=== PATIENT | female | born 1995 | race African-American/Black ===

== ENCOUNTER 2018-06-29 15:59 | Emergency (ER) | payer SELFPAY ==
[2018-06-29] MEDS ORDERED: DICYCLOMINE HCL 10 MG CAPSULE PO ONE (16:51)
[2018-06-29] MEDS ORDERED: IBUPROFEN 600 MG TABLET PO ONE (16:51)
--- NOTE | 2018-06-29 16:53 | ER Document Report ---
ED GI/ - General Chief Complaint: Pain With Urination Stated Complaint: STOMACH PAIN Time Seen by Provider: 06/29/18 16:50 Notes: Chief complaint: abdominal pain: History of complain:( obtained from----patient) 22 years old female presents today with suprapubic pain and discomfort dysuria and frequency for the last few days. Denies any fever chills denies any nausea vomiting diarrhea. But been constipated, usually has 2-3 bowel movement in a week. Smokes cannabis and cigarettes Onset: As above gradual Duration: Gradual last 2-3 days Severity: Mild to moderate Quality: Crampy Context: None Exacerbating factor and relieving factors: None REVIEW OF SYSTEMS: CONSTITUTIONAL : Denies fever, chills, or sweats. Denies recent illness. EENT: Denies eye, ear, throat, or mouth pain or symptoms. Denies nasal or sinus congestion or discharge. Denies throat, tongue, or mouth swelling or difficulty swallowing. CARDIOVASCULAR: Denies chest pain. Denies palpitations or racing or irregular heart beat. Denies ankle edema. RESPIRATORY: Denies cough, cold, or chest congestion. Denies shortness of breath, difficulty breathing, or wheezing. GASTROINTESTINAL: Denies distention. Denies nausea, vomiting, or diarrhea. Denies blood in vomitus, stools, or per rectum. Denies black, tarry stools. Denies constipation. GENITOURINARY: Denies difficulty urinating, painful urination, burning, frequency, blood in urine, or discharge. FEMALE GENITOURINARY: Denies vaginal bleeding, heavy or abnormal periods, irregular periods. Denies vaginal discharge or odor. MUSCULOSKELETAL: Denies back or neck pain or stiffness. Denies joint pain or swelling. SKIN: Denies rash, lesions or sores. HEMATOLOGIC : Denies easy bruising or bleeding. LYMPHATIC: Denies swollen, enlarged glands. NEUROLOGICAL: Denies confusion or altered mental status. Denies passing out or loss of consciousness. Denies dizziness or lightheadedness. Denies headache. Denies weakness or paralysis or loss of use of either side. Denies problems with gait or speech. Denies sensory loss, numbness, or tingling. Denies seizures. PSYCHIATRIC: Denies anxiety or stress. Denies depression, suicidal ideation, or homicidal ideation. ALL OTHER SYSTEMS REVIEWED AND NEGATIVE. PHYSICAL EXAMINATION: GENERAL: Well-appearing, well-nourished and in no acute distress. HEAD: Atraumatic, normocephalic. EYES: Pupils equal round and reactive to light, extraocular movements intact, conjunctiva are normal. ENT: Nares patent, oropharynx clear without exudates. Moist mucous membranes. NECK: Normal range of motion, supple without lymphadenopathy LUNGS: Breath sounds clear to auscultation bilaterally and equal. No wheezes rales or rhonchi. HEART: Regular rate and rhythm without murmurs ABDOMEN: Soft, nontender, nondistended abdomen. No guarding, no rebound. No masses appreciated. Female : deferred Musculoskeletal: Normal range of motion, no pitting or edema. No cyanosis. NEUROLOGICAL: Cranial nerves grossly intact. Normal speech, normal gait. Normal sensory, motor exams PSYCH: Normal mood, normal affect. SKIN: Warm, Dry, normal turgor, no rashes or lesions noted. Dictation was performed using [employer] voice recognition software TRAVEL OUTSIDE OF THE [place] IN LAST 30 DAYS: No - HPI Notes: 06/29/18 16:53 Dictated - Related Data Allergies/Adverse Reactions: Penicillins Allergy (Verified 06/29/18 16:02) Past Medical History - Social History Smoking Status: Current Every Day Smoker Cigarette use (# per day): No Chew tobacco use (# tins/day): No Smoking Education Provided: No Frequency of alcohol use: Rare Drug Abuse: Marijuana Family History: Reviewed & Not Pertinent Review of Systems - Review of Systems Notes: Dictated Physical Exam - Vital signs Vitals: Temp Pulse Resp BP Pulse Ox 98.8 F 65 16 105/51 L 100 06/29/18 16:05 06/29/18 16:05 06/29/18 16:05 06/29/18 16:05 06/29/18 16:05 - Notes Notes: Dictated Course - Vital Signs Vital signs: Temp Pulse Resp BP Pulse Ox 98.8 F 65 16 105/51 L 100 06/29/18 16:05 06/29/18 16:05 06/29/18 16:05 06/29/18 16:05 06/29/18 16:05
[2018-06-29 17:36] LABS: APPEARANCE,URINE CLOUDY; BILIRUBIN,URINE NEGATIVE (NEGATIVE); COLOR,URINE YELLOW; GLUCOSE, URINE NEGATIVE (NEGATIVE); KETONES,URINE NEGATIVE (NEGATIVE); LEUKOCYTE ESTERASE,URINE LARGE (NEGATIVE); NITRITE,URINE POSITIVE (NEGATIVE); PROTEIN,URINE 100 mg/dL (NEGATIVE); URINE SPECIFIC GRAVITY 1.029
[2018-06-29] MEDS ORDERED: CEFTRIAXONE INJ 1000 MG VIAL IV ONE (18:54)
[2018-06-29] MEDS ORDERED: NORMAL SALINE 1000 ML 1,000 ML IV ONE (18:54)
--- NOTE | 2018-06-29 18:56 | RADIOLOGY REPORT (SQ) ---
EXAM DESCRIPTION: KUB/ABDOMEN (SINGLE VIEW) COMPLETED DATE/TIME: 06/29/2018 6:13 pm REASON FOR STUDY: Abdominal pain COMPARISON: None. NUMBER OF VIEWS: One view. TECHNIQUE: Supine radiographic image of the abdomen acquired. LIMITATIONS: None. FINDINGS: BOWEL GAS PATTERN: Normal bowel gas pattern. No dilated loops. CALCIFICATIONS: No suspicious calcifications. SOFT TISSUES: No gross mass or suggestion of organomegaly. HARDWARE: None in the abdomen. BONES: No acute fracture. No worrisome bone lesions. OTHER: No other significant finding. IMPRESSION: NO RADIOGRAPHIC EVIDENCE FOR ACUTE ABDOMINAL DISEASE. TECHNICAL DOCUMENTATION: JOB ID: [id number] [employer]- All Rights Reserved Reading location - IP/workstation name: [email or web address]
--- NOTE | 2018-06-29 19:43 | ER Document Report ---
ED General - General Chief Complaint: Pain With Urination Stated Complaint: STOMACH PAIN Time Seen by Provider: 06/29/18 16:50 Notes: Patient is a 22-year-old female without chronic medical problems who presents with 1 week of dysuria now over the last 48 hours has developed suprapubic abdominal discomfort as well as bilateral flank tenderness. The patient describes the pain to her suprapubic abdomen and flanks as a mild, throbbing, aching pain. Nothing improves or worsens this pain. She denies a history of similar symptoms in the past. She has not had any fever or constitutional symptoms. No vomiting. She has not seen her general doctor regarding today's concerns. She states that she was concerned that she was becoming more ill prompting her to present to the emergency department today. TRAVEL OUTSIDE OF THE [place] IN LAST 30 DAYS: No - Related Data Allergies/Adverse Reactions: Penicillins Allergy (Verified 06/29/18 16:02) Past Medical History - General Information source: Patient Last Menstrual Period: 02 of June - Social History Smoking Status: Current Every Day Smoker Cigarette use (# per day): No Chew tobacco use (# tins/day): No Frequency of alcohol use: Rare Drug Abuse: Marijuana Lives with: Family Family History: Reviewed & Not Pertinent Patient has suicidal ideation: No Patient has homicidal ideation: No Renal/ Medical History: Denies: Hx Peritoneal Dialysis Review of Systems - Review of Systems Notes: Constitutional: Negative for fever. HENT: Negative for sore throat. Eyes: Negative for visual changes. Cardiovascular: Negative for chest pain. Respiratory: Negative for shortness of breath. Gastrointestinal: Positive for abdominal and flank pain Genitourinary: Positive for dysuria. Musculoskeletal: Negative for back pain. Skin: Negative for rash. Neurological: Negative for headaches, weakness or numbness. 10 point ROS negative except as marked above and in HPI. Physical Exam - Vital signs Vitals: Temp Pulse Resp BP Pulse Ox 98.8 F 65 16 105/51 L 100 06/29/18 16:04 06/29/18 16:04 06/29/18 16:04 06/29/18 16:04 06/29/18 16:04 Interpretation: Normal Notes: PHYSICAL EXAMINATION: GENERAL: Well-appearing, well-nourished and in no acute distress. HEAD: Atraumatic, normocephalic. EYES: Pupils equal round and reactive to light, extraocular movements intact, sclera anicteric, conjunctiva are normal. ENT: nares patent, oropharynx clear without exudates. Mildly dry mucous membranes. NECK: Normal range of motion, supple without lymphadenopathy LUNGS: Breath sounds clear to auscultation bilaterally and equal. No wheezes rales or rhonchi. HEART: Regular rate and rhythm without murmurs ABDOMEN: Soft, bilateral CVA tenderness and suprapubic abdominal tenderness without rebound or guarding. Abdominal exam otherwise benign without any localized areas of tenderness. Normoactive bowel sounds. EXTREMITIES: Normal range of motion, no pitting or edema. No cyanosis. NEUROLOGICAL: No focal neurological deficits. Moves all extremities spontaneously and on command. PSYCH: Normal mood, normal affect. SKIN: Warm, Dry, normal turgor, no rashes or lesions noted. Course - Re-evaluation Re-evalutation: 06/29/18 19:42 Presentation is most consistent with acute pyelonephritis. Laboratories do demonstrate a large amount of white blood cells in the urine as well as bacteria. CVA tenderness is present on exam. The remainder laboratories are relatively unremarkable without evidence of renal dysfunction. I do not suspect an acute appendicitis, biliary pathology, pancreatitis, intra-abdominal abscess, or tubo-ovarian abscess based on history and examination. Patient has been given a dose of IV ceftriaxone and a liter of fluids. Patient is able to tolerate oral intake without difficulty. Will be discharged home on 7 day course of cephalexin. A urine culture has been sent. At this time will discharge with return precautions and follow-up recommendations. Verbal discharge instructions given a the bedside and opportunity for questions given. Medication warnings reviewed. Patient is in agreement with this plan and has verbalized understanding of return precautions and the need for primary care follow-up in the next 24-72 hours. 06/30/18 03:51 - Vital Signs Vital signs: Temp Pulse Resp BP Pulse Ox 97.7 F 51 L 16 116/61 100 06/29/18 22:44 06/29/18 22:44 06/29/18 16:05 06/29/18 22:44 06/29/18 22:44 - Laboratory Result Diagrams: 06/29/18 21:00 06/29/18 21:00 Laboratory results interpreted by me: 06/29/18 06/29/18 06/29/18 17:08 21:00 21:00 RDW 16.1 H Seg Neutrophils % 33.6 L Lymphocytes % 52.2 H AST 38 H Urine Protein 100 H Urine Blood MODERATE H Urine Nitrite POSITIVE H Urine Urobilinogen 2.0 H Ur Leukocyte Esterase LARGE H - Diagnostic Test Radiology reviewed: Image reviewed, Reports reviewed Radiology results interpreted by me: 06/29/18 19:42 KUB: No evidence of obstruction or perforation Discharge - Discharge Clinical Impression: Pyelonephritis, Dysuria Condition: Good Disposition: HOME, SELF-CARE Additional Instructions: You have been diagnosed with a condition called pyelonephritis which is an infection involving your kidneys and bladder. You have been given a dose of antibiotics here in the emergency department to help begin to treat this infection. Your also being sent home on antibiotics. Please start taking these later on today when you fill the prescription. Complete the course even if you feel better. Please return if you have persistent vomiting, pass out, have worsening pain, become unable to tolerate fluids, or have any other symptoms that are concerning to you. Please follow-up with your primary care physician in the next 24-48 hours. Prescriptions: Cephalexin Monohydrate [Keflex 500 mg Capsule] 500 mg PO Q6H 7 Days capsule
[2018-06-29 21:15] LABS: ABSOLUTE BASOPHILS # (AUTO) 0.1 10^3/uL (0.0-0.2); ABSOLUTE EOSINOPHILS # (AUTO) 0.2 10^3/uL (0.0-0.6); ABSOLUTE LYMPHOCYTES (AUTO) 3.2 10^3/uL (0.5-4.7); ABSOLUTE MONOCYTES (AUTO) 0.6 10^3/uL (0.1-1.4); ABSOLUTE NEUT (AUTO) 2.1 10^3/uL (1.7-8.2); BASOPHILS % (AUTO) 1.3 % (0-2); EOSINOPHILS % (AUTO) 3.1 % (0-6); HEMATOCRIT 40.2 % (36.0-47.0); HEMOGLOBIN 13.4 g/dL (12.0-15.5); LYMPHOCYTES % (AUTO) 52.2 % (13-45); MEAN CORPUSCULAR HEMOGLOBIN 29.2 pg (27.0-33.4); MEAN CORPUSCULAR HGB CONC 33.2 g/dL (32.0-36.0); MEAN CORPUSCULAR VOLUME 88 fl (80-97); MONOCYTES % (AUTO) 9.8 % (3-13); PLATELET COUNT 365 10^3/uL (150-450); RED BLOOD COUNT 4.58 10^6/uL (3.72-5.28); RED CELL DISTRIBUTION WIDTH 16.1 % (11.5-14.0); SEGMENTED NEUTROPHILS % (AUTO) 33.6 % (42-78); TOTAL CELLS COUNTED % (AUTO) 100 %; WHITE BLOOD COUNT 6.2 10^3/uL (4.0-10.5)
[2018-06-29 21:32] LABS: ALANINE AMINOTRANSFERASE 36 U/L (9-52); ALBUMIN 4.5 g/dL (3.5-5.0); ALKALINE PHOSPHATASE 52 U/L (38-126); ANION GAP 12 (5-19); ASPARTATE AMINO TRANSFERASE 38 U/L (14-36); BILIRUBIN,DIRECT 0.3 mg/dL (0.0-0.4); BILIRUBIN,TOTAL 0.5 mg/dL (0.2-1.3); BLOOD UREA NITROGEN 15 mg/dL (7-20); CALCIUM 10.1 mg/dL (8.4-10.2); CARBON DIOXIDE 23 mmol/L (22-30); CHLORIDE 104 mmol/L (98-107); GLUCOSE 86 mg/dL (75-110); POTASSIUM 4.8 mmol/L (3.6-5.0); SODIUM 138.8 mmol/L (137-145); TOTAL PROTEIN 7.8 g/dL (6.3-8.2)
[2018-06-29 22:47] VITALS: BP 116/61
== END 2018-06-29 22:47 | disposition home or self-care (01) ==
LOC: ER 15:59
DX: N12 Tubulo-interstitial nephritis, not specified as acute or chronic (principal); R30.0 Dysuria; F17.200 Nicotine dependence, unspecified, uncomplicated; Z88.0 Allergy status to penicillin
CPT/HCPCS: 99284; 96361; 96365; 96366; 36415; 87086; 85025; 81025; 87088; 80053; 81001; 87186; 74018; J3490; J0696; J7030

== ENCOUNTER → 2020-11-04 | Outpatient (CLI) | payer SELFPAY ==
--- NOTE | 2020-11-04 15:01 | RADIOLOGY REPORT (SQ) ---
EXAM DESCRIPTION: U/S OB 14+ TRNABD 1GES W/O DOP IMAGES COMPLETED DATE/TIME: 11/04/2020 2:50 pm REASON FOR STUDY: (Z34.81)ENCOUNTER FOR SUPRVSN OF NORMAL , FIRST TRIMESTER Z34.81 ENCOUNT ER FOR SUPRVSN OF NORMAL , FIRST TRIM COMPARISON: None. TECHNIQUE: Static and Dynamic grayscale imaging performed of gravid uterus using transabdominal appr oach. Additional selected color Doppler and spectral images recorded. All stored on PACS. LIMITATIONS: None. FINDINGS: FETUSES SEEN:1 EGA: 14 weeks 5 days Calculated using BPD,FL,HC,AC documented on images. 5 weeks greater than gestat ional age by clinical dating. JULIÁN: 04/30/2021 LVP: 4.7 x 6.6 cm. PLACENTA: Anterior GRADE: I PRESENTATION: Variable ANATOMY: HEART RATE: 152 beats per minute. It is too early to assess anatomy meaningfully. MATERNAL ADNEXA: 18 mm left ovarian cyst. CERVICAL LENGTH: 3.3 cm. Closed. OTHER: No other significant finding. IMPRESSION: LIVING INTRAUTERINE . ESTIMATED GESTATIONAL AGE 14 weeks 5 days. Very limited anatomical evaluation. Trimester of : Third trimester - 28 weeks to delivery. TECHNICAL DOCUMENTATION: JOB ID: [id number] [employer]- All Rights Reserved Reading location - IP/workstation name: [email or web address]
== END ==
LOC: RAD 14:01
PROVIDERS: ATTEND Nurse Practitioner Family
DX: Z34.82 Encounter for supervision of other normal pregnancy, second trimester (principal)
CPT/HCPCS: 76805

== ENCOUNTER → 2020-12-10 | Outpatient (CLI) | payer SELFPAY ==
--- NOTE | 2020-12-10 16:03 | RADIOLOGY REPORT (SQ) ---
EXAM DESCRIPTION: U/S OB 14+ TRNABD 1GES W/O DOP IMAGES COMPLETED DATE/TIME: 12/10/2020 3:37 pm REASON FOR STUDY: (Z34.82)ENCOUNTER FOR SUPRVSN OF NORMAL , SECOND TRIMESTER Z34.[address] FOR SUPRVSN OF NORMAL , SECOND TRI COMPARISON: 11/04/2020 TECHNIQUE: Static and Dynamic grayscale imaging performed of gravid uterus using transabdominal appr oach. Additional selected color Doppler and spectral images recorded. All stored on PACS. LIMITATIONS: None. FINDINGS: FETUSES SEEN:1 EGA: 19 weeks 5 days Calculated using BPD,FL,HC,AC documented on images. No discrepancy with clinica l dates. JULIÁN: 05/01/2021 EFW: 308 grams PERCENTILE: Not applicable. Fetus less than or equal to 20 weeks gestation. LVP: 8.0 x 4.5 cm. PLACENTA: Anterior. Venous lakes. PRESENTATION: Cephalic. ANATOMY: HEART RATE: 144 beats per minute. FOUR CHAMBER HEART: Visualized. THREE VESSEL CORD: Yes. CORD INSERTION: Visualized. KIDNEYS AND BLADDER: Visualized. Appear normal. STOMACH: Visualized. Appears normal. SPINE: Normal as visualized. BRAIN AND LATERAL VENTRICLES: Visualized. Appear normal. OTHER: No other significant finding. MATERNAL ADNEXA: Maternal ovaries not visualized. CERVICAL LENGTH: 3.4 cm. Closed. OTHER: No other significant finding. IMPRESSION: LIVING INTRAUTERINE . ESTIMATED GESTATIONAL AGE 19 weeks 5 days. NO VISUALIZED ANOMALIES. Trimester of : Second trimester - 13 weeks 1 day to 27 weeks 6 days. TECHNICAL DOCUMENTATION: JOB ID: [id number] [employer]- All Rights Reserved Reading location - IP/workstation name: [email or web address]
== END ==
LOC: RAD 14:47
PROVIDERS: ATTEND Midwife
DX: Z34.82 Encounter for supervision of other normal pregnancy, second trimester (principal); Z3A.19 19 weeks gestation of pregnancy
CPT/HCPCS: 76805